=== PATIENT | female | born 1980 | race Caucasian/White ===

== ENCOUNTER 2017-09-27 22:15 | Inpatient (IN) | payer OTHER ==
[~2017-09-27] VITALS: Ht 165.1 cm; Wt 66.2 kg
[2017-09-27 22:42] LABS: HEMATOCRIT 39.8 % (36.0-46.0); MCH 30.5 PG (29.0-34.0); MCHC 35.4 G/DL (30.0-36.0); MCV 86.1 FL (83-99); MEAN PLAT.VOLUME 9.7 uM^3 (9.5-12.4); PLATELET COUNT 302 K/uL (156-360); RBC DIS.WIDTH-CV 11.9 % (11.8-14.6); RBC DIS.WIDTH-SD 37.2 % (39-53); RED BLOOD COUNT 4.62 M/uL (3.80-5.20)
[2017-09-27 22:51] LABS: CHLORIDE 103 mEq/L (99-109); POTASSIUM 3.5 mEq/L (3.7-5.4); SODIUM 138 mEq/L (136-147)
[2017-09-27 22:53] LABS: GLUCOSE 108 mg/dL (70-99)
[2017-09-27 22:55] LABS: ANION GAP 10 MEQ/L (2-14)
[2017-09-27 22:57] LABS: GFR ESTIMATE (CALCULATED) > 59 mL/min/
[2017-09-27 22:58] LABS: UREA NITROGEN (BUN) 12 mg/dL (9-23)
[2017-09-27 23:10] LABS: TROP-I INTERPRETATION NEGATIVE; TROPONIN-I < 0.01 ng/mL (0.0-0.30)
[2017-09-27 23:22] LABS: TOTAL BILIRUBIN 1.4 mg/dL (0.0-1.0)
[2017-09-27 23:23] LABS: ALKALINE PHOSPHATASE 181 IU/L (3-129)
[2017-09-27 23:25] LABS: DIRECT BILIRUBIN 0.8 mg/dL (0.0-0.3)
[2017-09-27 23:26] LABS: LIPASE 20 U/L (1.0-51.0)
[2017-09-28] MEDS ORDERED: PRILOSEC OTC20 MG PO (00:43)
[2017-09-28 05:57] LABS: EOSINOPHIL COUNT 0.1 K/uL (0-0.3); HEMATOCRIT 37.3 % (36.0-46.0); IMMATURE GRANULOCYTE (%) 0.3 % (0.0-0.7); LYMPHOCYTE COUNT 1.8 K/uL (1.0-2.8); MCH 30.4 PG (29.0-34.0); MCHC 34.9 G/DL (30.0-36.0); MCV 87.1 FL (83-99); MEAN PLAT.VOLUME 9.6 uM^3 (9.5-12.4); MONOCYTE (%) 8.7 % (3-12); MONOCYTE COUNT 0.6 K/uL (0-0.8); NEUTROPHIL (%) 60.7 % (45-76); PLATELET COUNT 279 K/uL (156-360); RBC DIS.WIDTH-CV 11.9 % (11.8-14.6); RBC DIS.WIDTH-SD 37.6 % (39-53); RED BLOOD COUNT 4.28 M/uL (3.80-5.20); WHITE BLOOD COUNT 6.6 K/uL (4.1-10.2)
[2017-09-28 06:09] LABS: CHLORIDE 109 mEq/L (99-109)
[2017-09-28 06:10] LABS: POTASSIUM 4.3 mEq/L (3.7-5.4); SODIUM 140 mEq/L (136-147)
[2017-09-28 06:12] LABS: GLUCOSE 86 mg/dL (70-99)
[2017-09-28 06:13] LABS: ANION GAP 6 MEQ/L (2-14)
[2017-09-28 06:14] LABS: TOTAL BILIRUBIN 2.6 mg/dL (0.0-1.0)
[2017-09-28 06:15] LABS: ALKALINE PHOSPHATASE 191 IU/L (3-129); GFR ESTIMATE (CALCULATED) > 59 mL/min/
[2017-09-28 06:17] LABS: UREA NITROGEN (BUN) 9 mg/dL (9-23)
[2017-09-28 15:02] VITALS: BP 118/65
[2017-09-28 19:27] VITALS: BP 110/56
[2017-09-28 23:29] VITALS: BP 91/50
[2017-09-29 03:36] VITALS: BP 92/54
[2017-09-29 06:40] LABS: EOSINOPHIL (%) 0.1 % (0-5); HEMATOCRIT 34.4 % (36.0-46.0); IMMATURE GRANULOCYTE (%) 0.4 % (0.0-0.7); IMMATURE GRANULOCYTE COUNT 0.1 K/uL; INSTRUMENT ABS NEUTROPHIL CT 10.7 K/uL; LYMPHOCYTE COUNT 2.2 K/uL (1.0-2.8); MCH 31.3 PG (29.0-34.0); MCHC 35.8 G/DL (30.0-36.0); MCV 87.5 FL (83-99); MEAN PLAT.VOLUME 10.1 uM^3 (9.5-12.4); MONOCYTE (%) 6.3 % (3-12); MONOCYTE COUNT 0.9 K/uL (0-0.8); NEUTROPHIL (%) 77.4 % (45-76); NEUTROPHIL COUNT 10.7 K/uL (1.8-6.4); PLATELET COUNT 275 K/uL (156-360); RBC DIS.WIDTH-CV 11.9 % (11.8-14.6); RBC DIS.WIDTH-SD 38.1 % (39-53); RED BLOOD COUNT 3.93 M/uL (3.80-5.20); WHITE BLOOD COUNT 13.8 K/uL (4.1-10.2)
[2017-09-29 07:17] LABS: ALKALINE PHOSPHATASE 169 IU/L (3-129); ANION GAP 10 MEQ/L (2-14); CHLORIDE 107 MEQ/L (99-109); GFR ESTIMATE (CALCULATED) > 59 mL/min/; GLUCOSE 73 mg/dL (70-99); POTASSIUM 4.3 MEQ/L (3.7-5.4); SAMPLE HEMOLYSIS CHECK 0; SAMPLE ICTERIC CHECK 0; SAMPLE LIPEMIA CHECK 0; SODIUM 139 MEQ/L (136-147); UREA NITROGEN (BUN) 8 mg/dL (9-23)
[2017-09-29 07:30] VITALS: BP 105/57
== END 2017-09-29 11:35 | disposition home or self-care (01) | DRG 446 ==
LOC: EME 22:15 → EDOF 09-28 02:50 → CANRESERV 09-28 02:51 → ENRESERV 09-28 02:51 → 2EAST 09-28 14:48
PROVIDERS: Hospitalist; Internal Medicine
PROC: 0FC98ZZ Extirpation of Matter from Common Bile Duct, Via Natural or Artificial Opening Endoscopic (ICD-10-PCS; principal; 2017-09-28)
DX: K80.70 Calculus of gallbladder and bile duct without cholecystitis without obstruction (principal); E87.6 Hypokalemia; R74.0 Nonspecific elevation of levels of transaminase and lactic acid dehydrogenase [LDH]; R74.8 Abnormal levels of other serum enzymes; M54.6 Pain in thoracic spine; K21.9 Gastro-esophageal reflux disease without esophagitis; R07.89 Other chest pain
CPT/HCPCS: 71020; 74328; 76705; 80048; 80053; 80076; 83690; 84484; 85025; 85027; 87081; 93005; 99281; 99285; C1757; C1769; C9113; J1100; J2250; J2405; J3480; J7030; S0028